=== PATIENT | female | born 1965 | race Caucasian/White ===

== ENCOUNTER → 2016-12-11 | Outpatient (CLI) | payer OTHER ==
[~2016-12-11] MED LIST: ALBUTEROL SULFATE NEB; ALPR1TAB6 PO; BUDE10.2 INH; CHOL200024 PO; COLE1TAB2 PO; DIAZ5TAB4 PO; LORA10TA3 PO; MONT10TA9 PO; ONDA4TAB13 SL; PROM25TA10 PO; SERT50TA5 PO; SUMA100T4 PO; [UNRECOGNIZED DRUG - CODE] PO
== END ==
LOC: STAR 13:27
PROVIDERS: ATTEND Specialist
DX: Z02.9 Encounter for administrative examinations, unspecified (principal)

== ENCOUNTER 2016-12-23 07:50 | Day surgery (SDC) | payer OTHER ==
[~2016-12-23] VITALS: Ht 174 cm; Wt 69.5 kg
[2016-12-23] MEDS ORDERED: LACTATED RINGERS 1,000 ML IV SCH (08:20)
[2016-12-23 08:45] VITALS: BP 119/78
[2016-12-23] MEDS ORDERED: PROM25TA10 PO (08:45)
[2016-12-23] MEDS ORDERED: VASOPRESSIN 20 UNIT/ML, 1ML ONE (09:42)
[2016-12-23] MEDS ORDERED: BUPIVACAINE/PF 0.25% ONE (09:42)
[2016-12-23] MEDS ORDERED: PROPOFOL 10 MG/ML, 50ML ONE (10:12)
[2016-12-23] MEDS ORDERED: DEXAMETHASONE 4 MG/ML, 1ML ONE (10:12)
[2016-12-23] MEDS ORDERED: METOCLOPRAMIDE 5 MG/ML, 2ML ONE (10:12)
[2016-12-23] MEDS ORDERED: ONDANSETRON 2MG/ML, 2ML ONE (10:12)
[2016-12-23] MEDS ORDERED: PROPOFOL 10 MG/ML, 20ML ONE (10:12)
[2016-12-23] MEDS ORDERED: MIDAZOLAM 1 MG/ML, 2ML ONE (10:14)
[2016-12-23] MEDS ORDERED: FENTANYL PF 100 MCG/2ML ONE (10:14)
[2016-12-23] MEDS ORDERED: MIDAZOLAM 1 MG/ML, 2ML IV PRN (12:00)
[2016-12-23] MEDS ORDERED: MEPERIDINE/PF 25MG/0.5ML IVPush PRN (12:00)
[2016-12-23] MEDS ORDERED: OXYcodone 5 MG/5 ML ORAL.SOL UDC PO PRN (12:00)
[2016-12-23] MEDS ORDERED: ALBUTEROL SULFATE 2.5 MG/3 ML NPPB PRN (12:00)
[2016-12-23] MEDS ORDERED: LABETALOL 5MG/ML, 20ML IV PRN (12:00)
[2016-12-23] MEDS ORDERED: METOCLOPRAMIDE 5 MG/ML, 2ML IV PRN (12:00)
[2016-12-23] MEDS ORDERED: HYDROmorphone 1 MG/ML, 1ML IV PRN (12:00)
[2016-12-23] MEDS ORDERED: FENTANYL PF 100 MCG/2ML IV PRN (12:00)
[2016-12-23] MEDS ORDERED: ONDANSETRON 2MG/ML, 2ML IVPush PRN (12:00)
[2016-12-23] MEDS ORDERED: ACETAMINOPHEN 650 MG/20.3 ML UDC ONE (12:03)
[2016-12-23] MEDS ORDERED: OXYcodone 5 MG/5 ML ORAL.SOL UDC ONE (12:04)
== END 2016-12-23 14:30 ==
LOC: OUT 07:50
PROVIDERS: ATTEND Specialist
DX: N94.10 Unspecified dyspareunia (principal); N94.810 Vulvar vestibulitis; J45.909 Unspecified asthma, uncomplicated; G43.909 Migraine, unspecified, not intractable, without status migrainosus; Z91.018 Allergy to other foods
CPT/HCPCS: 56620; 88305; 88312; J1100; J2250; J2405; J2704; J2765; J3010; J3490; J7120

== ENCOUNTER → 2017-08-17 | Outpatient (CLI) | payer OTHER ==
[~2017-08-17] MED LIST changes: +OMNIPAQUE 350 MG/ML, 100ML BOTTLE ONE
== END | disposition home or self-care (01) ==
LOC: CFH 06:59
PROVIDERS: ATTEND Family Medicine
DX: D37.5 Neoplasm of uncertain behavior of rectum (principal)
CPT/HCPCS: 72193; Q9967

== ENCOUNTER → 2017-08-24 | Outpatient (CLI) | payer OTHER ==
[~2017-08-24] MED LIST changes: -OMNIPAQUE 350 MG/ML, 100ML BOTTLE ONE
== END | disposition home or self-care (01) ==
LOC: CFH 07:19
PROVIDERS: ATTEND Specialist
DX: Z12.31 Encounter for screening mammogram for malignant neoplasm of breast (principal)
CPT/HCPCS: 77063; 77067

== ENCOUNTER → 2018-10-19 | Outpatient (CLI) | payer BC ==
[~2018-10-19] MED LIST changes: +LORA-247 PO; -LORA10TA3 PO; +SERT50TA28 PO; -SERT50TA5 PO
== END | disposition home or self-care (01) ==
LOC: CFH 07:27
PROVIDERS: ATTEND Specialist
DX: Z12.31 Encounter for screening mammogram for malignant neoplasm of breast (principal)
CPT/HCPCS: 77063; 77067

== ENCOUNTER → 2020-10-23 | Outpatient (CLI) | payer BC ==
[~2020-10-23] MED LIST changes: +ALPR-585 PO; -ALPR1TAB6 PO; +MONT10TA17 PO; -MONT10TA9 PO
== END | disposition home or self-care (01) ==
LOC: CFH 08:00
PROVIDERS: ATTEND Family Medicine
DX: Z12.31 Encounter for screening mammogram for malignant neoplasm of breast (principal)
CPT/HCPCS: 77063; 77067